=== PATIENT | female | born 1955 | race Caucasian/White ===

== ENCOUNTER → 2021-02-09 | Outpatient (CLI) | payer MEDICARE | LOC: RAD 09:33 | PROVIDERS: ATTEND Family Medicine | DX: Z01.810 Encounter for preprocedural cardiovascular examination (principal) | CPT/HCPCS: 93306 ==

== ENCOUNTER → 2021-07-10 | Outpatient (CLI) | payer MEDICARE | LOC: RAD 13:08 | PROVIDERS: ATTEND Student in an Organized Health Care Education/Training Program | DX: M25.511 Pain in right shoulder (principal) ==

== ENCOUNTER → 2021-12-27 | Outpatient (CLI) | payer MEDICARE | LOC: DX 08:10 | PROVIDERS: ATTEND Surgery | DX: R11.10 Vomiting, unspecified (principal); Z98.84 Bariatric surgery status; Z20.822 Contact with and (suspected) exposure to COVID-19 | CPT/HCPCS: 0223U; 36415; 74246 ==

== ENCOUNTER → 2022-01-08 | Day surgery (SDC) | payer MEDICARE ==
[2022-01-04 13:43] LABS: BASOPHILS # (AUTO) 0.1 (0.0-0.1); BASOPHILS % 0.8 % (0.0-1.0); EOSINOPHILS # (AUTO) 0.3 (0.0-0.4); EOSINOPHILS % 4.6 % (0.0-6.0); HEMATOCRIT 39.3 % (34.2-44.1); HEMOGLOBIN 13.4 g/dL (12.0-16.0); LYMPHOCYTES # (AUTO) 1.9 (1.0-3.2); LYMPHOCYTES % 29.7 % (18.0-39.1); MEAN CORPUSCULAR HEMOGLOBIN 30.1 pg (28-32); MEAN CORPUSCULAR HGB CONC 34.1 g/dL (31-35); MEAN CORPUSCULAR VOLUME 88.3 fL (81-99); MONOCYTES # (AUTO) 0.4 (0.2-0.8); MONOCYTES % 5.6 % (4.4-11.3); NEUTROPHILS # (AUTO) 3.7 (2.1-6.9); NEUTROPHILS % 59.1 % (38.7-80.0); PLATELET COUNT 265 x10e3/uL (140-360); RED BLOOD COUNT 4.45 x10e6/uL (3.6-5.1); RED CELL DISTRIBUTION WIDTH 12.5 % (11.7-14.4)
[2022-01-04 14:05] LABS: ANION GAP 8.1 mmol/L (8-16); CALCIUM 9.6 mg/dL (8.4-10.2); CREATININE, SERUM 0.8 mg/dL (0.57-1.11); POTASSIUM 4.1 mmol/L (3.5-5.1)
[~2022-01-08] MED LIST: AMLODIPINE BESY10 MG PO; BUPIVACAINE 0.25% 30ML SDV ONE; BUPROPION HCL200 MG PO; DEXAMETHASONE SOD PHOS INJ 4 MG/ML SDV ONE; FAMOTIDINE 20 MG/2 ML VIAL IV ONE; FENTANYL CITRATE/PF 100MCG/2 ML INJ ONE; HYDROCHLOROTHIA25 MG PO; HYDROCODON-ACE1 EAC9 PO; HYDROCODONE/APAP 7.5MG-325MG 1 EA TAB ONE; HYDROMORPHONE 1MG/1ML INJ ONE; LIDOCAINE HCL 2% LOCAL INJ 5 ML SDV VIAL INJ ONE; LOSARTAN POTAS100 MG PO; MIDAZOLAM HCL 2 MG/2 ML VIAL ONE; OMEPRAZOLE40 MG PO; ONDANSETRON HCL INJ 2MG/ML 2ML 2 MG/ML VIAL ONE; POVIDONE IODINE 0.05% 0.05 % ML PO ONE; PROPOFOL IV EMULSION 10 MG/ML 20 ML VIAL ONE; ROCURONIUM BROMIDE 10 MG/ML 5ML VIAL IV ONE; SEVOFLURANE INHAL SOLN 250 ML PEN BTL ONE; SUCCINYLCHOLINE CHLORIDE 20 MG/ML 10ML VIAL ONE; TIZANIDINE HCL4 M1 PO; TRAZODONE HCL50 MG PO; [UNRECOGNIZED DRUG - OTHER]
[2022-01-08 13:05] VITALS: BP 166/76
== END | disposition home or self-care (01) ==
LOC: OR 08:52
PROVIDERS: ATTEND Surgery
DX: T85.898A Other specified complication of other internal prosthetic devices, implants and grafts, initial encounter (principal); K56.50 Intestinal adhesions [bands], unspecified as to partial versus complete obstruction; I10 Essential (primary) hypertension; G89.29 Other chronic pain; R00.1 Bradycardia, unspecified; M19.90 Unspecified osteoarthritis, unspecified site; J61 Pneumoconiosis due to asbestos and other mineral fibers; E11.9 Type 2 diabetes mellitus without complications; K21.9 Gastro-esophageal reflux disease without esophagitis; K44.9 Diaphragmatic hernia without obstruction or gangrene; F32.A Depression, unspecified; Y83.8 Other surgical procedures as the cause of abnormal reaction of the patient, or of later complication, without mention of misadventure at the time of the procedure; Z91.012 Allergy to eggs; Z01.810 Encounter for preprocedural cardiovascular examination; Z01.812 Encounter for preprocedural laboratory examination; Z01.818 Encounter for other preprocedural examination; Z20.822 Contact with and (suspected) exposure to COVID-19; Z79.899 Other long term (current) drug therapy; Z85.820 Personal history of malignant melanoma of skin; Z87.891 Personal history of nicotine dependence
CPT/HCPCS: 0223U; 36415 ×2; 43774; 71046; 80048; 82948; 85025; 88300; 93005; C1766; J0330; J0690; J1100; J1170; J2001; J2250; J2405; J2704; J3010

== ENCOUNTER → 2024-07-07 | Day surgery (SDC) | payer MEDICARE ==
[2024-07-06 14:23] LABS: BASOPHILS # (AUTO) 0.1 (0.0-0.1); BASOPHILS % 0.8 % (0.0-1.0); EOSINOPHILS # (AUTO) 0.3 (0.0-0.4); EOSINOPHILS % 4.3 % (0.0-6.0); HEMATOCRIT 42.5 % (34.2-44.1); HEMOGLOBIN 14.8 g/dL (12.0-16.0); LYMPHOCYTES # (AUTO) 2.3 (1.0-3.2); LYMPHOCYTES % 29.5 % (18.0-39.1); MEAN CORPUSCULAR HEMOGLOBIN 29.7 pg (28-32); MEAN CORPUSCULAR HGB CONC 34.8 g/dL (31-35); MEAN CORPUSCULAR VOLUME 85.3 fL (81-99); MONOCYTES # (AUTO) 0.3 (0.2-0.8); MONOCYTES % 4.3 % (4.4-11.3); NEUTROPHILS # (AUTO) 4.7 (2.1-6.9); NEUTROPHILS % 60.8 % (38.7-80.0); PLATELET COUNT 287 x10e3/uL (140-360); RED BLOOD COUNT 4.98 x10e6/uL (3.6-5.1); RED CELL DISTRIBUTION WIDTH 13.1 % (11.7-14.4); WHITE BLOOD COUNT 7.66 x10e3/uL (4.8-10.8)
[2024-07-06 14:40] LABS: INR 0.9; PROTHROMBIN TIME 12.7 seconds (11.9-14.5)
[2024-07-06 14:47] LABS: ANION GAP 14.4 mmol/L (8-16); CALCIUM 10.2 mg/dL (8.4-10.2); CREATININE, SERUM 0.87 mg/dL (0.57-1.11)
[2024-07-06 14:49] LABS: POTASSIUM 3.4 mmol/L (3.5-5.1)
[~2024-07-07] MED LIST changes: +ALLERGY MEDICAT25 MG; -BUPIVACAINE 0.25% 30ML SDV ONE; +COREG6.25 MG PO; -DEXAMETHASONE SOD PHOS INJ 4 MG/ML SDV ONE; -FAMOTIDINE 20 MG/2 ML VIAL IV ONE; +HYDRALAZINE HCL 20 MG/ML VIAL ONE; -HYDROMORPHONE 1MG/1ML INJ ONE; +OZEMPIC2 MG/0.75; -POVIDONE IODINE 0.05% 0.05 % ML PO ONE; -ROCURONIUM BROMIDE 10 MG/ML 5ML VIAL IV ONE; +ROPIVACAINE/EPI/CLONIDINE/KET 50 ML SYRINGE INJ ONE; -SEVOFLURANE INHAL SOLN 250 ML PEN BTL ONE; -SUCCINYLCHOLINE CHLORIDE 20 MG/ML 10ML VIAL ONE
[2024-07-07] MEDS: CEFAZOLIN SODIUM 2 GM ONE (10:50)
[2024-07-07] MEDS: LACTATED RINGER'S 1,000 ML ONE (10:51)
[2024-07-07] MEDS: KETOROLAC TROMETHAMINE 30 MG/ML VIAL ONE (13:21)
[2024-07-07] MEDS: MEPERIDINE HCL INJ 25 MG/ML VIAL ONE (13:27)
[2024-07-07] MEDS: HYDROCODONE/APAP 7.5MG-325MG 1 EA TAB PO ONE (14:00)
[2024-07-07 15:20] VITALS: BP 136/60; PULSE 83; RESP 18; O2SAT 98
[2024-07-07] MEDS: ONDANSETRON HCL INJ 2MG/ML 2ML 2 MG/ML VIAL IV ONE (16:15)
== END | disposition home or self-care (01) ==
LOC: OR 10:00
PROVIDERS: ATTEND Orthopaedic Surgery
DX: M17.11 Unilateral primary osteoarthritis, right knee (principal); S83.241A Other tear of medial meniscus, current injury, right knee, initial encounter; S83.281A Other tear of lateral meniscus, current injury, right knee, initial encounter; M25.761 Osteophyte, right knee; M23.41 Loose body in knee, right knee; M06.9 Rheumatoid arthritis, unspecified; E11.9 Type 2 diabetes mellitus without complications; I10 Essential (primary) hypertension; J45.909 Unspecified asthma, uncomplicated; M54.2 Cervicalgia; M54.9 Dorsalgia, unspecified; K44.9 Diaphragmatic hernia without obstruction or gangrene; K21.9 Gastro-esophageal reflux disease without esophagitis; N39.0 Urinary tract infection, site not specified; F41.9 Anxiety disorder, unspecified; F32.A Depression, unspecified; X58.XXXA Exposure to other specified factors, initial encounter; Z91.048 Other nonmedicinal substance allergy status; Z01.810 Encounter for preprocedural cardiovascular examination; Z01.812 Encounter for preprocedural laboratory examination; Z01.818 Encounter for other preprocedural examination; Z79.85 Long-term (current) use of injectable non-insulin antidiabetic drugs; Z79.899 Other long term (current) drug therapy
CPT/HCPCS: 27447; 36415; 71046; 73562; 80048; 85025; 85610; 85730; 86850; 86900; 93005; 97110; 97116 ×2; 97161; 97530; C1713 ×2; C1776 ×2; J0360; J1885; J2003; J2175; J2405; J2704; J7121; J2250